=== PATIENT | female | born 1955 | race Two or more races ===

== ENCOUNTER 2022-06-29 17:42 | Inpatient (IN) | payer OTHER | END 2022-06-30 23:44 | disposition home or self-care (01) | DRG 550 | LOC: MEDI 17:42 → MEDJ 17:42 | PROVIDERS: ADMIT Internal Medicine; ATTEND Internal Medicine | PROC: 02HV33Z Insertion of Infusion Device into Superior Vena Cava, Percutaneous Approach (ICD-10-PCS; principal; 2022-06-29) | DX: M00.842 Arthritis due to other bacteria, left hand (principal); Z20.822 Contact with and (suspected) exposure to COVID-19 ==